=== PATIENT | male | born 1970 | race Caucasian/White ===

== ENCOUNTER 2020-10-19 17:12 | Emergency (ER) | payer BC, OTHER ==
[2020-10-19] MEDS ORDERED: HYDROmorphone 1 MG/ML Syringe IM ONE (17:37)
--- NOTE | 2020-10-19 17:39 | EDM.PDOC ---
ED HPI GENERAL MEDICAL PROBLEM - General Chief Complaint: Lower Extremity Injury/Pain Stated Complaint: RT CALF PAIN Time Seen by Provider: 10/19/20 17:23 Source of Information: Reports: Patient, RN Notes Reviewed History Limitations: Reports: No Limitations - History of Present Illness INITIAL COMMENTS - FREE TEXT/NARRATIVE: Patient is a 50-year-old male who presents to the ED for evaluation of his right calf pain. The patient notes that for the last 3 days, he has been having issues with his right calf being tender and painful when walking. He notes this is been worsening over the past few days, he went to the chiropractor today, but they would not adjust him as they thought there could be a possibility for a blood clot or DVT. Patient states that the calf is very tender to the touch, he is not appreciated any swelling, and it feels like a pretty severe charley horse, but kind of comes and goes he has been using Aleve at home, but did not take any today for management. No signs of infection like redness or further swelling. Patient is denying any fever/chills, cough/shortness of breath, nausea/vomiting/diarrhea. Patient denies any trauma to the area or any obscure injury. He does state that he recently got a new pair of muck boots, so he thought maybe it could have been his legs getting used to the new boots. 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 He does have a primary care provider, Sweta Villar. Right Lower Posterior Leg Pain Score (Numeric/FACES): 10 - Related Data Allergies Allergy/AdvReac Type Severity Reaction Status Date / Time No Known Allergies Allergy Verified 10/19/20 17:26 Home Meds: Home Meds hydroCHLOROthiazide [Hydrochlorothiazide] 25 mg PO DAILY 10/19/20 [History] lisinopriL [Lisinopril] 40 mg PO DAILY 10/19/20 [History] Past Medical History Cardiovascular History: Reports: Hypertension Social & Family History - Tobacco Use Tobacco Use Status *Q: Former Tobacco User Tobacco Use Within Last Twelve Months: Cigarettes Years of Tobacco use: 30 Used Tobacco, but Quit: Yes Month/Year Tobacco Last Used: 2020 - Caffeine Use Caffeine Use: Reports: Soda - Recreational Drug Use Recreational Drug Use: No Review of Systems - Review of Systems Review Of Systems: Comprehensive ROS is negative, except as noted in HPI. ED EXAM, GENERAL - Physical Exam Exam: See Below Exam Limited By: No Limitations General Appearance: Alert, WD/WN, No Apparent Distress Respiratory/Chest: No Respiratory Distress, Lungs Clear, Normal Breath Sounds, No Accessory Muscle Use, Chest Non-Tender Cardiovascular: Normal Peripheral Pulses, Regular Rate, Rhythm, No Edema Peripheral Pulses: 2+: Radial (L), Radial (R) Extremities: Normal Inspection, Normal Range of Motion, Normal Capillary Refill, Joanna's Sign (Right calf), Leg Pain (tenderness to right calf with light palpation.) Neurological: Alert, Oriented, Normal Cognition, No Motor/Sensory Deficits Psychiatric: Normal Affect, Normal Mood Skin Exam: Warm, Dry, Intact, Normal Color, No Rash Course - Vital Signs Last Recorded V/S: Last Vital Signs Temp 97.7 F 10/19/20 17:33 Pulse 66 10/19/20 17:33 Resp 20 10/19/20 17:33 BP 135/80 10/19/20 17:33 Pulse Ox 99 10/19/20 17:33 - Orders/Labs/Meds Orders: Active Orders 24 hr Category Date Time Status VL Duplex Lwr Ext Veins Ltd Rt [US] Stat Exams 10/19/20 17:33 Ordered Meds: Medications Discontinued Medications Generic Name Dose Route Start Last Admin Trade Name Freq PRN Reason Stop Dose Admin Hydromorphone HCl 1 mg 10/19/20 17:37 10/19/20 17:50 Dilaudid IM 10/19/20 17:38 1 mg ONETIME ONE Administration - Re-Assessments/Exams Free Text/Narrative Re-Assessment/Exam: 10/19/20 17:40 Patient presents to the ED for the evaluation of his right calf pain, due to him being over the road dump truck driver we will go ahead and get ultrasound of the leg to evaluate for DVT, patient will be given 1 mg IM Dilaudid; in 0.5 mg doses, to provide adequate pain relief for the ultrasound that will need to be performed. 10/19/20 18:26 Ultrasound has been done, demonstrates no sign of DVT at this time. Likely that this could be a calf muscle strain, will treat as such with conservative recommendations and discharge home at this time. Departure - Departure Time of Disposition: 18:27 Disposition: Home, Self-Care 01 Condition: Good Clinical Impression: Right calf pain - Discharge Information *PRESCRIPTION DRUG MONITORING PROGRAM REVIEWED*: No *COPY OF PRESCRIPTION DRUG MONITORING REPORT IN PATIENT LORNA: No Instructions: Muscle Strain, [id number] Referrals: Sweta Villar [employer] [Primary Care Provider] - Forms: ED Department Discharge Additional Instructions: You were seen in this ER for your right calf pain. An ultrasound was performed, demonstrates no sign of a DVT or blood clot at this time. Likely that you could have strained your calf muscle causing the amount of pain that you are in. You may use 500 mg Tylenol or 600 mg ibuprofen every 6 hours as needed for further pain management, do not exceed 4000 mg Tylenol or 3 200 mg ibuprofen in a 24-hour time span. You may use heat/ice and alternating basis, to the muscle for 20-minute intervals. Please use what feels best, since this is likely a muscular injury, heat might provide you more benefit but again if ice feels better go ahead and use ice. You may try to use light massage to the area to see if this helps relieve some of the pain as well. Please return to the ER at any time if symptoms change or worsen. Sepsis Event Note (ED) - Focused Exam Vital Signs: Vital Signs Temp Pulse Resp BP Pulse Ox 10/19/20 17:33 97.7 F 66 20 135/80 99 - My Orders Last 24 Hours: My Active Orders 10/19/20 17:33 VL Duplex Lwr Ext Veins Ltd Rt [US] Stat - Assessment/Plan Last 24 Hours: My Active Orders 10/19/20 17:33 VL Duplex Lwr Ext Veins Ltd Rt [US] Stat
--- NOTE | 2020-10-20 09:04 | US ---
Right lower extremity deep venous ultrasound: Duplex and color Doppler evaluation was obtained of the right common femoral, proximal greater saphenous, superficial femoral, popliteal, posterior tibial and peroneal veins. Left common femoral vein was also evaluated. Comparison: No prior venous imaging is available. Findings: Normal phasic flow, augmentation and compression is seen. Impression: 1. No evidence of deep venous thrombosis within the right lower extremity or within the left common femoral vein. 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
== END 2020-10-19 19:05 | disposition home or self-care (01) ==
LOC: JD.ED 17:12
DX: M79.661 Pain in right lower leg (principal); I10 Essential (primary) hypertension; Z87.891 Personal history of nicotine dependence; Z79.899 Other long term (current) drug therapy
CPT/HCPCS: 93971; 96372; 99283; J1170

== ENCOUNTER 2020-10-26 17:48 | Emergency (ER) | payer BC ==
[2020-10-26] MEDS ORDERED: Aspirin 81 MG Tab.Chew PO ONE (18:21)
[2020-10-26] MEDS ORDERED: Sodium Chloride 0.9% 10 ML Syringe FLUSH PRN (18:22)
--- NOTE | 2020-10-26 18:32 | EDM.PDOC ---
ED HPI GENERAL MEDICAL PROBLEM - General Chief Complaint: Cardiovascular Problem Stated Complaint: CHEST PAINS AND BACK PAINS Time Seen by Provider: 10/26/20 18:20 Source of Information: Reports: Patient History Limitations: Reports: No Limitations - History of Present Illness INITIAL COMMENTS - FREE TEXT/NARRATIVE: 50-year-old male presents to the emergency department complaints of right back and chest pain. Patient states that at about 6:00 last night he coughed and felt a sharp stabbing pain through his right shoulder blade and into his right chest wall. Patient states that since he has severe pain when taking a deep breath or coughing. He states that he feels like someone is stabbing a knife through his back on his right side. Patient states discomfort when taking a deep breath. Patient does have a history of smoking for 30 years for which she quit about 2 years ago. Denies any significant cardiac history. Denies any recent fever, chills, cough or shortness of breath. Chest Pain Score (Numeric/FACES): 2 - Related Data Allergies Allergy/AdvReac Type Severity Reaction Status Date / Time No Known Allergies Allergy Verified 10/26/20 18:05 Home Meds: Home Meds hydroCHLOROthiazide [Hydrochlorothiazide] 25 mg PO DAILY 10/19/20 [History] lisinopriL [Lisinopril] 40 mg PO DAILY 10/19/20 [History] Past Medical History Cardiovascular History: Reports: Hypertension, SOB on Exertion Respiratory History: Reports: Bronchitis, Recurrent, SOB Gastrointestinal History: Reports: Diverticulosis, GERD, Hiatal Hernia Other Musculoskeletal History: right hand fracture Endocrine/Metabolic History: Reports: Obesity/BMI 30+ - Infectious Disease History Infectious Disease History: Reports: Chicken Pox, Influenza - Past Surgical History GI Surgical History: Reports: Colonoscopy Social & Family History - Tobacco Use Tobacco Use Status *Q: Current Every Day Tobacco User Years of Tobacco use: 35 Packs/Tins Daily: 3 - Caffeine Use Caffeine Use: Reports: Soda - Recreational Drug Use Recreational Drug Use: No ED ROS GENERAL - Review of Systems Review Of Systems: Comprehensive ROS is negative, except as noted in HPI. ED EXAM, GENERAL - Physical Exam Exam: See Below Exam Limited By: No Limitations General Appearance: Alert, WD/WN, No Apparent Distress Ears: Normal External Exam, Hearing Grossly Normal Nose: Normal Inspection Throat/Mouth: Normal Inspection, Normal Voice, No Airway Compromise Head: Atraumatic, Normocephalic Neck: Normal Inspection, Supple, Non-Tender, Full Range of Motion Respiratory/Chest: No Respiratory Distress, Lungs Clear, Normal Breath Sounds, No Accessory Muscle Use, Chest Non-Tender Cardiovascular: Normal Peripheral Pulses, Regular Rate, Rhythm, No Edema, No Murmur Peripheral Pulses: 2+: Radial (L), Radial (R) GI/Abdominal: Normal Bowel Sounds, Soft, Non-Tender, No Distention (Male) Exam: Deferred Rectal (Males) Exam: Deferred Back Exam: Normal Inspection, Full Range of Motion. No: CVA Tenderness (L), CVA Tenderness (R), Paraspinal Tenderness, Vertebral Tenderness Extremities: Normal Inspection, Normal Range of Motion, Non-Tender, No Pedal Edema, Normal Capillary Refill Neurological: Alert, Oriented, Normal Cognition Psychiatric: Normal Affect, Normal Mood Skin Exam: Warm, Dry, Intact, Normal Color, No Rash Lymphatic: No Adenopathy Course - Vital Signs Text/Narrative:: 50-year-old male who presents to the emergency department with complaints of right-sided chest pain radiating from his right scapula. Patient states he developed this last evening at about 6 PM when he spontaneously coughed and felt a sharp stabbing pain through his right shoulder blade into his anterior chest wall. He denies any shortness of breath after the event. Denies any recent fever, chills or cough. States he has had stabbing chest pain intermittently on the right side throughout the day today since the event last evening. Nursing staff has already placed standing orders on this patient. Last Recorded V/S: Last Vital Signs Temp 97.6 F 10/26/20 17:58 Pulse 61 10/26/20 17:58 Resp 14 10/26/20 17:58 BP 162/86 H 10/26/20 17:58 Pulse Ox 97 10/26/20 17:58 - Orders/Labs/Meds Orders: Active Orders 24 hr Category Date Time Status EKG 12 Lead [EKG Documentation Completion] [RC] STAT Care 10/26/20 18:06 Active Peripheral IV Care [RC] . DIRECTED Care 10/26/20 18:22 Active Chest 2V [CR] Stat Exams 10/26/20 18:13 Taken Sodium Chloride 0.9% [Saline Flush] Med 10/26/20 18:22 Active 10 ml FLUSH ASDIRECTED PRN Peripheral IV Insertion Adult [OM.PC] Routine Oth 10/26/20 18:22 Ordered Medication Orders Sodium Chloride (Saline Flush) 10 ml FLUSH ASDIRECTED PRN PRN Reason: Keep Vein Open Last Admin: 10/26/20 18:25 Dose: 10 ml Documented by: OWEN Labs: Laboratory Tests 10/26/20 10/26/20 10/26/20 Range/Units 18:00 18:02 18:02 WBC 9.82 H (4.23-9.07) K/mm3 RBC 4.88 (4.63-6.08) M/mm3 Hgb 14.4 (13.7-17.5) gm/dl Hct 43.8 (40.1-51.0) % MCV 89.8 (79.0-92.2) fl MCH 29.5 (25.7-32.2) pg MCHC 32.9 (32.2-35.5) g/dl RDW Std Deviation 45.8 H (35.1-43.9) fL Plt Count 248 (163-337) K/mm3 MPV 10.9 (9.4-12.3) fl Neut % (Auto) 68.8 H (34.0-67.9) % Lymph % (Auto) 23.8 (21.8-53.1) % Granite % (Auto) 5.8 (5.3-12.2) % Eos % (Auto) 1.3 (0.8-7.0) Baso % (Auto) 0.2 (0.1-1.2) % Neut # (Auto) 6.75 H (1.78-5.38) K/mm3 Lymph # (Auto) 2.34 (1.32-3.57) K/mm3 Granite # (Auto) 0.57 (0.30-0.82) K/mm3 Eos # (Auto) 0.13 (0.04-0.54) K/mm3 Baso # (Auto) 0.02 (0.01-0.08) K/mm3 APTT 25.1 (21.7-31.4) SECONDS Sodium 144 (136-145) mEq/L Potassium 4.1 (3.5-5.1) mEq/L Chloride 107 (98-107) mEq/L Carbon Dioxide 28 (21-32) mEq/L Anion Gap 13.1 (5-15) BUN 13 (7-18) mg/dL Creatinine 1.0 (0.7-1.3) mg/dL Est Cr Clr Drug Dosing 102.75 mL/min Estimated GFR (MDRD) > 60 (>60) mL/min BUN/Creatinine Ratio 13.0 L (14-18) Glucose 195 H (74-106) mg/dL Calcium 8.9 (8.5-10.1) mg/dL Total Bilirubin 0.3 (0.2-1.0) mg/dL AST 15 (15-37) U/L ALT 30 (16-63) U/L Alkaline Phosphatase 103 (46-116) U/L CK-MB (CK-2) < 0.5 (0-3.6) ng/ml Troponin I < 0.017 (0.00-0.056) ng/mL Total Protein 7.2 (6.4-8.2) g/dl Albumin 3.5 (3.4-5.0) g/dl Globulin 3.7 gm/dL Albumin/Globulin Ratio 1.0 (1-2) Meds: Medications Generic Name Dose Route Start Last Admin Trade Name Freq PRN Reason Stop Dose Admin Sodium Chloride 10 ml 10/26/20 18:22 10/26/20 18:25 Saline Flush FLUSH 10 ml ASDIRECTED PRN Administration Keep Vein Open Discontinued Medications Generic Name Dose Route Start Last Admin Trade Name Freq PRN Reason Stop Dose Admin Aspirin 324 mg 10/26/20 18:21 10/26/20 18:26 Aspirin PO 10/26/20 18:22 324 mg ONETIME ONE Administration - Re-Assessments/Exams Free Text/Narrative Re-Assessment/Exam: 10/26/20 19:16 Labs reveal a WBC 9.82, chemistry is unremarkable, troponin is less than 0.017 Chest x-ray is unremarkable there is nothing acute appreciated. I also had Dr. Aleman review it. Patient will be discharged home with recommendations that he alternate Tylenol 650 mg p.o. with ibuprofen 800 mg p.o. every 4 hours. With recommendations to follow-up with his primary care provider early next week if he is not better. Departure - Departure Time of Disposition: 19:17 Disposition: Home, Self-Care 01 Condition: Good Clinical Impression: Chest pain, atypical Instructions: Chest Wall Pain, [id number] Referrals: Sweta Villar NP [Primary Care Provider] - Forms: ED Department Discharge Additional Instructions: You were seen in the emergency department today with complaints of right-sided scapula pain radiating through the right chest wall that started last night at about 6 PM when you coughed. Full cardiac work-up was completed and this was unremarkable. You likely pulled a muscle when coughing. Recommend that you go home and rest. Take Tylenol 650 mg alternating every 4 hours with ibuprofen 800 mg for the next 48 hours. Should you still be experiencing the discomfort on Thursday recommend you follow-up with your primary care provider. Should your condition worsen or change please do not hesitate to return to the emergency department. Sepsis Event Note (ED) - Evaluation Sepsis Screening Result: No Definite Risk - Focused Exam Vital Signs: Vital Signs Temp Pulse Resp BP Pulse Ox 10/26/20 17:58 97.6 F 61 14 162/86 H 97 - My Orders Last 24 Hours: My Active Orders 10/26/20 18:06 EKG 12 Lead [EKG Documentation Completion] [RC] STAT 10/26/20 18:13 Chest 2V [CR] Stat 10/26/20 18:22 Peripheral IV Care [RC] . DIRECTED Sodium Chloride 0.9% [Saline Flush] 10 ml FLUSH ASDIRECTED PRN Peripheral IV Insertion Adult [OM.PC] Routine - Assessment/Plan Last 24 Hours: My Active Orders 10/26/20 18:06 EKG 12 Lead [EKG Documentation Completion] [RC] STAT 10/26/20 18:13 Chest 2V [CR] Stat 10/26/20 18:22 Peripheral IV Care [RC] . DIRECTED Sodium Chloride 0.9% [Saline Flush] 10 ml FLUSH ASDIRECTED PRN Peripheral IV Insertion Adult [OM.PC] Routine
--- NOTE | 2020-10-28 09:14 | CR ---
Chest: 2 views of the chest were obtained. Comparison: No prior chest imaging is available. Heart size and mediastinum are normal. Lungs are clear with no acute parenchymal change. Bony structures show minimal degenerative change within the spine. Impression: 1. Nothing acute is seen on 2 view chest x-ray. Diagnostic code #2
== END 2020-10-26 19:44 | disposition home or self-care (01) ==
LOC: JD.ED 17:48
DX: R07.89 Other chest pain (principal); I10 Essential (primary) hypertension; Z72.0 Tobacco use; E66.9 Obesity, unspecified; Z68.41 Body mass index [BMI] 40.0-44.9, adult
CPT/HCPCS: 36415; 71046; 80053; 82553; 84484; 85025; 85730; 93005; 99285; A9270; 99283

== ENCOUNTER 2021-02-09 15:06 | Emergency (ER) | payer BC ==
[2021-02-09] MEDS ORDERED: Sodium Chloride 0.9% 10 ML Syringe FLUSH PRN (15:18)
--- NOTE | 2021-02-09 15:20 | EDM.PDOC ---
ED HPI GENERAL MEDICAL PROBLEM - General Chief Complaint: Chest Pain Stated Complaint: CHEST PAIN/SOB /PAIN IN MIDDLE OF BACK Time Seen by Provider: 02/09/21 15:17 Source of Information: Reports: Patient, RN Notes Reviewed History Limitations: Reports: No Limitations - History of Present Illness INITIAL COMMENTS - FREE TEXT/NARRATIVE: Patient is a 50-year-old male who presents to the ER for the evaluation of his chest pain and shortness of breath. Patient notes that he does work nights, he woke up at around 1230, due to some pain in his right chest that radiated into his back. States that this pain is a little different than normal chest pain, and is causing him some shortness of breath. He now also has a slight headache. Notices that the pain seems to worsen a little bit more with moving and is better when he is resting. Patient's not had any sort of MIs, or any other cardiac surgeries. He does have high blood pressure and takes medications for this. States that he did take 4 Tylenol for back pain, and some heart burn medications prior to coming to the ER. States that he does not do a lot of heavy lifting at work however at home, he has been receiving the lawn, raking the lawn, and a lot of other exertional activities. He states he has had somewhat of a dry cough this morning but has no fevers or chills, or any worsening shortness of breath or worsening cough and he has not been around anyone that is been known to be sick. States his father did have a heart attack at the age of 42 and survived, and his family is known for having early cardiac history. Right Chest Pain Score (Numeric/FACES): 1 - Related Data Allergies Allergy/AdvReac Type Severity Reaction Status Date / Time No Known Allergies Allergy Verified 02/09/21 15:17 Home Meds: Home Meds hydroCHLOROthiazide [Hydrochlorothiazide] 25 mg PO DAILY 10/19/20 [History] lisinopriL [Lisinopril] 40 mg PO DAILY 10/19/20 [History] Omeprazole Magnesium [Prilosec Otc] 20 mg PO DAILY 02/09/21 [History] Orphenadrine [Norflex] 100 mg PO BID PRN #20 tab 02/09/21 [Rx] Past Medical History Cardiovascular History: Reports: Hypertension, SOB on Exertion Respiratory History: Reports: Bronchitis, Recurrent, SOB Gastrointestinal History: Reports: Diverticulosis, GERD, Hiatal Hernia Other Musculoskeletal History: right hand fracture Endocrine/Metabolic History: Reports: Obesity/BMI 30+ - Infectious Disease History Infectious Disease History: Reports: Chicken Pox, Influenza - Past Surgical History GI Surgical History: Reports: Colonoscopy Social & Family History - Caffeine Use Caffeine Use: Reports: Soda ED ROS GENERAL - Review of Systems Review Of Systems: Comprehensive ROS is negative, except as noted in HPI. ED EXAM, GENERAL - Physical Exam Exam: See Below Exam Limited By: No Limitations General Appearance: Alert, WD/WN, No Apparent Distress Eye Exam: Bilateral Eye: EOMI, Normal Inspection, PERRL Respiratory/Chest: No Respiratory Distress, Lungs Clear, Normal Breath Sounds, No Accessory Muscle Use, Chest Non-Tender Cardiovascular: Normal Peripheral Pulses, Regular Rate, Rhythm, No Edema Peripheral Pulses: 2+: Radial (L), Radial (R) Back Exam: Normal Inspection, Full Range of Motion Extremities: Normal Inspection, Normal Capillary Refill Neurological: Alert, Oriented, Normal Cognition, No Motor/Sensory Deficits Psychiatric: Normal Affect, Normal Mood, Anxious (slight generalized.) Skin Exam: Warm, Dry, Intact, Normal Color #1 Interpretation EKG Date: 02/09/21 Time: 15:16 Rhythm: NSR Rate (Beats/Min): 59 [place]: LAD-Left [place] Deviation (borderline) P-Wave: Present QRS: Normal ST-T: Normal QT: Normal Comparison: No Change (as compared from 10/26/20) EKG Interpretation Comments: No obvious ischemia or acute ST changes noted, reviewed by myself and Dr. Good. Course - Vital Signs Last Recorded V/S: Last Vital Signs Temp 97.8 F 02/09/21 15:15 Pulse 66 02/09/21 15:15 Resp 16 02/09/21 15:15 BP 133/82 02/09/21 15:15 Pulse Ox 95 02/09/21 15:15 - Orders/Labs/Meds Orders: Active Orders 24 hr Category Date Time Status EKG Documentation Completion [RC] STAT Care 02/09/21 15:18 Active Peripheral IV Care [RC] . DIRECTED Care 02/09/21 15:18 Active INR,PT,PROTHROMBIN TIME [COAG] Stat Lab 02/09/21 15:28 Received PTT,PARTIAL THROMBOPLSTIN TIME [COAG] Stat Lab 02/09/21 15:28 Received Sodium Chloride 0.9% [Saline Flush] Med 02/09/21 15:18 Active 10 ml FLUSH ASDIRECTED PRN Peripheral IV Insertion Adult [OM.PC] Stat Oth 02/09/21 15:18 Ordered Medication Orders Sodium Chloride (Sodium Chloride 0.9% 10 Ml Syringe) 10 ml FLUSH ASDIRECTED PRN PRN Reason: Keep Vein Open Labs: Laboratory Tests 02/09/21 02/09/21 02/09/21 Range/Units 15:28 15:28 15:28 WBC 10.20 H (4.23-9.07) K/mm3 RBC 5.05 (4.63-6.08) M/mm3 Hgb 14.8 (13.7-17.5) gm/dl Hct 45.8 (40.1-51.0) % MCV 90.7 (79.0-92.2) fl MCH 29.3 (25.7-32.2) pg MCHC 32.3 (32.2-35.5) g/dl RDW Std Deviation 45.5 H (35.1-43.9) fL Plt Count 244 (163-337) K/mm3 MPV 10.6 (9.4-12.3) fl Neut % (Auto) 69.4 H (34.0-67.9) % Lymph % (Auto) 23.4 (21.8-53.1) % [place] % (Auto) 5.7 (5.3-12.2) % Eos % (Auto) 1.0 (0.8-7.0) Baso % (Auto) 0.3 (0.1-1.2) % Neut # (Auto) 7.08 H (1.78-5.38) K/mm3 Lymph # (Auto) 2.39 (1.32-3.57) K/mm3 [place] # (Auto) 0.58 (0.30-0.82) K/mm3 Eos # (Auto) 0.10 (0.04-0.54) K/mm3 Baso # (Auto) 0.03 (0.01-0.08) K/mm3 Sodium 140 (136-145) mEq/L Potassium 4.0 (3.5-5.1) mEq/L Chloride 102 (98-107) mEq/L Carbon Dioxide 29 (21-32) mEq/L Anion Gap 13.0 (5-15) BUN 18 (7-18) mg/dL Creatinine 1.3 (0.7-1.3) mg/dL Est Cr Clr Drug Dosing 81.25 mL/min Estimated GFR (MDRD) 58 (>60) mL/min BUN/Creatinine Ratio 13.8 L (14-18) Glucose 125 H (70-99) mg/dL Calcium 9.4 (8.5-10.1) mg/dL Magnesium 2.2 (1.8-2.4) mg/dL Total Bilirubin 0.6 (0.2-1.0) mg/dL AST 20 (15-37) U/L ALT 37 (16-63) U/L Alkaline Phosphatase 68 (46-116) U/L Troponin I < 0.017 (0.00-0.056) ng/mL NT-Pro-B Natriuret Pep 23 (0-125) pg/mL Total Protein 7.9 (6.4-8.2) g/dl Albumin 3.8 (3.4-5.0) g/dl Globulin 4.1 gm/dL Albumin/Globulin Ratio 0.9 L (1-2) Meds: Medications Generic Name Dose Route Start Last Admin Trade Name Freq PRN Reason Stop Dose Admin Sodium Chloride 10 ml 02/09/21 15:18 Sodium Chloride 0.9% 10 Ml Syringe FLUSH ASDIRECTED PRN Keep Vein Open Discontinued Medications Generic Name Dose Route Start Last Admin Trade Name Freq PRN Reason Stop Dose Admin Ketorolac Tromethamine 30 mg 02/09/21 16:08 Ketorolac 30 Mg/Ml Sdv IVPUSH 02/09/21 16:09 ONETIME ONE Orphenadrine Citrate 100 mg 02/09/21 16:08 Orphenadrine 100 Mg Tab.Er PO 02/09/21 16:09 ONETIME ONE - Re-Assessments/Exams Free Text/Narrative Re-Assessment/Exam: 02/09/21 15:29 Patient presents to the ER for evaluation of his chest discomfort and shortness of breath, likely this is more of a musculoskeletal strain in nature, due to him having receded the lawn and raking the lawn. We will however get a EKG and basic labs to rule out any sign of cardiac etiology. Since this pain started roughly 1230, if this is cardiac, his enzymes should be elevated. 02/09/21 16:09 Labs have resulted, troponin is undetectably low, all other labs essentially unr emarkable. Patient's chest x-ray demonstrates some slight right basilar atelectasis otherwise no acute findings. Again likely this is more musculoskeletal strain in nature I have ordered 30 mg IV Toradol from initial management, along with some Norflex. Departure - Departure Time of Disposition: 16:18 Disposition: Home, Self-Care 01 Condition: Good Clinical Impression: Chest pain, atypical Muscle strain of chest wall Qualifiers: Encounter type: initial encounter Qualified Code(s): S29.011A - Strain of muscle and tendon of front wall of thorax, initial encounter Prescriptions: Orphenadrine [Norflex] 100 mg PO BID PRN #20 tab PRN Reason: Spasms Instructions: Chest Wall Pain, Thoracic Strain, [id number] Referrals: Sweta Villar NP [Primary Care Provider] - Forms: ED Department Discharge Additional Instructions: You were evaluated in the ER today for your chest discomfort and back pain. Cardiac work-up today included a chest x-ray, EKG, and labs, everything is unremarkable you are not suffering from a heart attack at today's visit. Due to your recent yardwork, your pain is thought most likely due to musculoskeletal strain of your chest wall. This will take some time to heal, and you might be fairly sore for the next day or 2. You may continue to use Tylenol ibuprofen every 6 hours as needed for ongoing pain management and have been provided with a prescription for Norflex, which is a muscle relaxer, you may take 1 tablet every 12 hours as needed for further muscle spasms. This medication was electronically sent to the [place] pharmacy located in the [facility] grocery store. I recommend you follow-up with your primary care provider, sometime this week, to see if they would want to do further cardiac testing like a stress test, ETC. Otherwise do not hesitate to return to the ER if symptoms change or worsen. Sepsis Event Note (ED) - Evaluation Sepsis Screening Result: No Definite Risk - Focused Exam Vital Signs: Vital Signs Temp Pulse Resp BP Pulse Ox 02/09/21 15:15 97.8 F 66 16 133/82 95 - My Orders Last 24 Hours: My Active Orders 02/09/21 15:18 EKG Documentation Completion [RC] STAT Peripheral IV Care [RC] . DIRECTED Sodium Chloride 0.9% [Saline Flush] 10 ml FLUSH ASDIRECTED PRN Peripheral IV Insertion Adult [OM.PC] Stat 02/09/21 15:28 INR,PT,PROTHROMBIN TIME [COAG] Stat PTT,PARTIAL THROMBOPLSTIN TIME [COAG] Stat - Assessment/Plan Last 24 Hours: My Active Orders 02/09/21 15:18 EKG Documentation Completion [RC] STAT Peripheral IV Care [RC] . DIRECTED Sodium Chloride 0.9% [Saline Flush] 10 ml FLUSH ASDIRECTED PRN Peripheral IV Insertion Adult [OM.PC] Stat 02/09/21 15:28 INR,PT,PROTHROMBIN TIME [COAG] Stat PTT,PARTIAL THROMBOPLSTIN TIME [COAG] Stat
--- NOTE | 2021-02-09 15:55 | CR ---
Chest: Portable view of the chest was obtained. Comparison: Prior chest x-ray of 10/26/20. Heart size and mediastinum are within normal limits. Slight area of atelectasis is seen within the right lung base. Lungs otherwise are clear with no acute parenchymal change. No acute osseous abnormality is appreciated. Impression: 1. Slight right basilar atelectasis. 2. Nothing acute is seen on portable chest x-ray. Diagnostic code #2
[2021-02-09] MEDS ORDERED: Ketorolac 30 MG/ML SDV IVPUSH ONE (16:08)
[2021-02-09] MEDS ORDERED: Orphenadrine 100 MG Tab.ER PO ONE (16:08)
== END 2021-02-09 16:39 | disposition home or self-care (01) ==
LOC: JD.ED 15:06
DX: S29.011A Strain of muscle and tendon of front wall of thorax, initial encounter (principal); I10 Essential (primary) hypertension; K21.9 Gastro-esophageal reflux disease without esophagitis; E66.9 Obesity, unspecified; Z68.41 Body mass index [BMI] 40.0-44.9, adult; Z79.899 Other long term (current) drug therapy; X58.XXXA Exposure to other specified factors, initial encounter
CPT/HCPCS: 36415; 71045; 80053; 83735; 83880; 84484; 85025; 85610; 85730; 93005; 96374; 99285; A9270; J1885; 93010; 99284